=== PATIENT | male | born 1980 | race Caucasian/White ===

== ENCOUNTER 2018-06-11 08:27 | Day surgery (SDC) | payer OTHER ==
[2018-06-10 10:45] VITALS: BMI 23.5
[2018-06-11] MEDS ORDERED: ROPIVACAINE HCL 0.5% 30ML VIAL ONE (11:53)
[2018-06-11] MEDS ORDERED: MIDAZOLAM HCL 2 MG/2 ML SINGLE DOSE VIAL ONE ×2 (11:53→12:30)
[2018-06-11] MEDS ORDERED: DEXAMETHASONE SOD PHOSPHATE/PF 10 MG/ML SDV ONE (11:53)
[2018-06-11] MEDS ORDERED: DEXAMETHASONE SOD PHOSPHATE 4 MG/1 ML VIAL ONE (12:28)
[2018-06-11] MEDS ORDERED: ceFAZolin SODIUM 1 GM VIAL ONE (12:28)
[2018-06-11] MEDS ORDERED: ONDANSETRON 4 MG/2 ML VIAL ONE (12:28)
[2018-06-11] MEDS ORDERED: PROPOFOL 20 ML ONE ×2 (12:29→13:34)
[2018-06-11] MEDS ORDERED: BUPIVACAINE HCL/EPINEPHRINE/PF 30 ML VIAL IJ ONE (12:49)
[2018-06-11] MEDS ORDERED: TRANEXAMIC ACID 1000 MG/10 ML VIAL ONE (13:15)
[2018-06-11] MEDS ORDERED: LABETALOL HCL 5 MG/1 ML (100MG/20 ML VIAL) ONE (13:41)
[2018-06-11] MEDS ORDERED: oxyCODONE HCL 5 MG TABLET PO PRN ×2 (14:10→15:15)
--- NOTE | 2018-06-11 14:15 | OP ---
Operative Note - Note: Operative Date: 06/11/18 Pre-Operative Diagnosis: RIGHT SHOULDER MASSIVE ROTATOR CUFF TEAR- ACUTE Operation: OPEN ROTATOR CUFF REPAIR Post-Operative Diagnosis: Same as Pre-op Surgeon: Tenzin Amato Citrus Fruit Packer: Damian Atkins Anesthesiologist/PEA VINER MECHANIC: Bogdan Velazco Anesthesia: General Operative Report Dictated: Yes
--- NOTE | 2018-06-11 14:15 | DS ---
Physical Examination Vital Signs: Vital Signs Temperature 97.8 F 06/11/18 09:06 Pulse Rate 60 06/11/18 09:06 Respiratory Rate 18 06/11/18 09:06 Blood Pressure 138/89 06/11/18 09:06 O2 Sat by Pulse Oximetry (%) 100 06/11/18 09:06 Discharge Summary Reason For Visit: RIGHT SHOULDER SUBSCAPULARIS TEAR Condition: Good - Instructions Diet, Activity, Other Instructions: Post Operative Instructions: Shoulder Arthroscopy Dr Tenzin Amato 1. Pain following a Shoulder Arthroscopy is variable and can be significant. Some patients will have more pain than others. You have been provided with a prescription for medication that contains a narcotic. You are not allowed to drive while on this medication. You should take Tylenol (Acetaminophen) when taking the pain medication ( it will NOT result in an overdose). Feel free to take medications such as Ibuprofen or Naprosyn in addition to the pain medicine if you do not have any problems with the NSAID class of medications. TAKE ASPIRIN 325 MG TWICE A DAY FOR TWO WEEKS TO DECREASE BLOOD CLOT RISK CALL THE OFFICE ON THURSDAY TO GIVE US THE NUMBER FOR YOUR PHYSICAL THERAPIST 2. Apply ice to the shoulder for 15 minutes every hour. You may continue this for as many days as necessary. 3. You may find sleeping on an incline (reclining chair) to be more comfortable for the first few days. 4. You should remain in your sling most of the time. You should remove the sling to move the arm a few times a day to minimize risk of stiffness and to move the elbow 5. You are not to use your arm to lift anything or carry anything until instructed otherwise. 6. You may remove the bandages in 72 hours. You may shower at that point. 7. Place band-aids on the incision after your shower.Do not put any creams or lotions on the incision until after the sutures are removed. 8. Please call the office to schedule a visit to have your sutures removed. 9. If for any reason you believe you may have an infection or are concerned, please feel free to call me. I can be reached through our office number 24 hours a day. 10. Please call our office with any questions; we will review the surgical findings during your post-operative visit. Disposition: HOME - Home Medications Comprehensive Discharge Medication List: Ambulatory Orders Naproxen 500 mg PO BID PRN 06/10/18
[2018-06-11] MEDS ORDERED: ONDANSETRON 4 MG/2 ML VIAL IVPUSH PRN (15:15)
[2018-06-11] MEDS ORDERED: LACTATED RINGERS SOLUTION 1,000 ML IV SCH (15:15)
[2018-06-11] MEDS ORDERED: oxyCODONE HCL 10 MG SUSTAINED ACTING TABLET PO ONE (15:45)
[2018-06-11 16:37] VITALS: BP 128/85; PULSE 62; TEMP 97.7
== END 2018-06-11 16:37 | disposition home or self-care (01) ==
LOC: FASU 08:27
PROVIDERS: ATTEND Orthopaedic Surgery
PROC: 0LM10ZZ Reattachment of Right Shoulder Tendon, Open Approach (ICD-10-PCS; principal; 2018-06-11 12:51)
DX: M75.121 Complete rotator cuff tear or rupture of right shoulder, not specified as traumatic (principal)
CPT/HCPCS: 94760